=== PATIENT | female | born 2000 | race Caucasian/White ===

== ENCOUNTER 2023-03-09 04:07 | Outpatient (CLI) | payer BC, SELFPAY ==
[2023-03-09 18:27] LABS: TSH 0.87 uIU/mL (0.36-3.74)
== END 2023-03-09 04:08 | disposition home or self-care (01) ==
PROVIDERS: Visit Provider Midwife
DX: Z13.29 Encounter for screening for other suspected endocrine disorder (principal)
CPT/HCPCS: 36415; 84443

== ENCOUNTER 2023-03-22 14:54 | Outpatient (REF) | payer BC, SELFPAY ==
[2023-03-24 15:26] LABS: Chlamydia Result Negative (Negative); GC Result Negative (Negative)
== END 2023-03-22 14:55 | disposition home or self-care (01) ==
LOC: LBN 14:54
PROVIDERS: Visit Provider Advanced Practice Midwife
DX: Z11.3 Encounter for screening for infections with a predominantly sexual mode of transmission (principal)
CPT/HCPCS: 87491; 87591

== ENCOUNTER 2023-09-26 09:12 | Outpatient (REF) | payer BC, SELFPAY ==
[2023-09-27 14:55] LABS: Chlamydia Result Negative (Negative); GC Result Negative (Negative)
== END 2023-09-26 09:13 | disposition home or self-care (01) ==
LOC: LBN 09:12
PROVIDERS: Visit Provider Nurse Practitioner Women's Health
DX: Z11.3 Encounter for screening for infections with a predominantly sexual mode of transmission (principal)
CPT/HCPCS: 87491; 87591

== ENCOUNTER 2024-01-11 17:00 | Outpatient (REF) | payer BC, SELFPAY ==
[2024-01-13 13:42] LABS: Chlamydia Result Negative (Negative); GC Result Negative (Negative)
== END 2024-01-11 17:01 | disposition home or self-care (01) ==
LOC: LBN 17:00
PROVIDERS: PCP Nurse Practitioner Family; Visit Provider Nurse Practitioner Family
DX: Z00.00 Encounter for general adult medical examination without abnormal findings (principal); R20.2 Paresthesia of skin
CPT/HCPCS: 87491; 87591

== ENCOUNTER 2024-02-23 13:20 | Outpatient (CLI) | payer BC, SELFPAY ==
[2024-02-23 14:40] LABS: HCT 39.3 % (36.0-46.0); HGB 13.5 g/dL (11.2-15.7); MCH 28.3 pg (27.0-33.0); MCHC 34.4 % (32.0-36.0); MCV 82 fL (80-95); MPV 9.4 fL (8.0-11.0); Platelet Count 250 10^3/uL (130-400); RBC 4.77 10^6/uL (3.93-5.22); WBC 6.97 10^3/uL (4.4-10.8)
[2024-02-23 15:39] LABS: Ferritin 99 ng/mL (8-252); TSH (W/Ref FT4) 1.35 uIU/mL (0.36-3.74); Vitamin B12 961 pg/mL (193-986); Vitamin D 25 Total 48.6 ng/mL (30-100)
== END 2024-02-23 13:21 | disposition home or self-care (01) ==
PROVIDERS: PCP Nurse Practitioner Family; Referring Provider Nurse Practitioner Family; Visit Provider Nurse Practitioner Family
DX: R20.2 Paresthesia of skin (principal); R53.83 Other fatigue
CPT/HCPCS: 36415; 82306; 85027; 82607; 82728; 84443

== ENCOUNTER 2024-05-30 13:48 | Outpatient (REF) | payer BC, SELFPAY ==
[2024-05-30 15:09] LABS: Bacteria Moderate HPF (Negative); C & S Indicated? C&S Done As Ordered; Casts Negative LPF (Negative); Crystals Negative HPF (Negative); Epithelial Cells Many HPF (Negative); Mucus Negative (Negative); Other Cells Negative (Negative); RBC Negative HPF (0-2)
[2024-06-03 12:27] LABS: Chlamydia Result Invalid (Negative); GC Result Invalid (Negative)
== END 2024-05-30 13:49 | disposition home or self-care (01) ==
LOC: LBN 13:48
PROVIDERS: PCP Nurse Practitioner Family; Visit Provider Physician Assistant Medical
DX: N89.8 Other specified noninflammatory disorders of vagina (principal); R82.89 Other abnormal findings on cytological and histological examination of urine
CPT/HCPCS: 87491; 87591; 81015; 87086; 87480; 87510; 87660

== ENCOUNTER 2024-12-25 03:10 | Outpatient (CLI) | payer BC, SELFPAY ==
[2024-12-25 13:52] LABS: HCT 38.4 % (36.0-46.0); HGB 13.3 g/dL (11.2-15.7); MCH 28.4 pg (27.0-33.0); MCHC 34.6 % (32.0-36.0); MCV 82 fL (80-95); Platelet Count 198 10^3/uL (130-400); RBC 4.68 10^6/uL (3.93-5.22); RDW 11.8 % (11.7-14.6); WBC 7.59 10^3/uL (4.4-10.8)
[2024-12-25 14:29] LABS: TSH (W/Ref FT4) 1.05 uIU/mL (0.36-3.74)
== END 2024-12-25 03:11 | disposition home or self-care (01) ==
LOC: LBO 03:10
PROVIDERS: PCP Nurse Practitioner Family; Visit Provider Nurse Practitioner Family
DX: R53.83 Other fatigue (principal)
CPT/HCPCS: 36415; 85027; 84443